=== PATIENT | female | born 2000 | race Caucasian/White ===

== ENCOUNTER → 2021-01-16 13:08 | Outpatient (CLI) | payer OTHER, SELFPAY ==
--- NOTE | 2021-01-16 | DI.MRI.S_ITS ---
PROCEDURE: MR LUMBAR SPINE WO CON INDICATIONS: Low back pain TECHNIQUE: Noncontrast sagittal T1 spin echo and T2 fast echo, sagittal STIR, axial T1 and T2 fast spin echo through the lumbar spine. In cases with scoliosis, additional coronal T2 fast spin echo may be performed. COMPARISON: None. FINDINGS: Image quality: Excellent. Alignment and Curvature: No plain films are available for comparison, for numbering purposes. Thus, for the purposes of this examination, 5 lumbar type vertebral bodies will be presumed, as denoted on the montage panel. This should be confirmed and correlated with plain films, prior to any lumbar spinal intervention. Loss of normal lumbar lordosis. Bone Marrow: Marrow is of normal overall signal. No acute vertebral body compression fractures. Minimal reactive signal within the endplates adjacent to the L4-L5 and L5-S1 intervertebral discs. Spinal Cord: Conus medullaris terminates at the mid L2 level. Visualized cord demonstrates normal signal and size. Paraspinous Soft Tissues: No paravertebral masses. T12-L1: Normal appearance. L1-L2: Normal appearance. L2-L3: Normal appearance. L3-L4: Normal appearance. L4-L5: Moderate disc desiccation. Mild diffuse disc bulge with small superimposed central protrusion. Mild facet and ligamentum flavum hypertrophy. Mild epidural lipomatosis. Mild canal stenosis. No foraminal stenosis. L5-S1: Mild disc height loss. Moderate disc desiccation. Mild diffuse disc bulge with small superimposed broad-based central protrusion. Mild bilateral facet hypertrophy. Mild canal stenosis. No foraminal stenosis. IMPRESSION: Multilevel degenerative disc and facet disease, as well as ligamentum flavum hypertrophy and epidural lipomatosis. Mild multilevel canal and foraminal stenosis. No neural impingement. Dictated by: Bertni Bolton M.D. on 01/16/2021 at 13:43 Approved by: Bertin Bolton M.D. on 01/16/2021 at 13:45
== END ==
PROVIDERS: Referring Provider Student in an Organized Health Care Education/Training Program; Visit Provider Student in an Organized Health Care Education/Training Program
DX: M54.5 Low back pain (principal); M51.36 Other intervertebral disc degeneration, lumbar region; M51.37 Other intervertebral disc degeneration, lumbosacral region; M48.061 Spinal stenosis, lumbar region without neurogenic claudication; M48.07 Spinal stenosis, lumbosacral region; E88.2 Lipomatosis, not elsewhere classified
CPT/HCPCS: 72148

== ENCOUNTER → 2021-04-12 11:01 | Outpatient (CLI) | payer OTHER, SELFPAY ==
--- NOTE | 2021-04-12 | DI.MRI.S_ITS ---
PROCEDURE: MR LUMBAR SPINE WO CON INDICATIONS: CERVICAL,THORACIC,LUMBAR PAIN TECHNIQUE: Noncontrast sagittal T1 spin echo and T2 fast echo, sagittal STIR, axial T1 and T2 fast spin echo through the lumbar spine. In cases with scoliosis, additional coronal T2 fast spin echo may be performed. COMPARISON: [facility], MR, MR LUMBAR SPINE WO CON, 01/16/2021, 13:24. FINDINGS: Image quality: Excellent. Alignment and Curvature: There is normal bony alignment. Bone Marrow: Marrow is of normal overall signal. No acute vertebral body compression fractures. Spinal Cord: Conus medullaris terminates at the L1 level. Visualized cord demonstrates normal signal and size. Paraspinous Soft Tissues: No paravertebral masses. T12-L1: Normal appearance. L1-L2: Normal appearance. L2-L3: Normal appearance. L3-L4: No significant abnormality is seen. L4-L5: The disc height is well-preserved. Loss of disc signal is seen at this level. Mild to moderate disc bulge is seen. There is a superimposed central disc protrusion. There is a focal annular fissure seen posteriorly. Mild facet joint hypertrophy is seen. There is minimal left-sided and mild right-sided neural foraminal narrowing seen. Mild to moderate central canal narrowing is seen. No significant change from the prior images. L5-S1: Mild loss of disc height is seen. Loss of disc signal is seen. Mild to moderate disc bulge is seen, with a mild central disc protrusion. There is a focal annular fissure seen posteriorly. Mild facet joint hypertrophy is seen. No significant neural foraminal narrowing can be seen. Mild central canal narrowing is seen. Stable from the prior study. IMPRESSION: Stable focal lower lumbar spine degenerative changes are seen, with central disc protrusions and annular fissures at L4-L5 and L5-S1. Dictated by: Brady Whitaker M.D. on 04/12/2021 at 12:43 Approved by: Brady Whitaker M.D. on 04/12/2021 at 12:46
--- NOTE | 2021-04-12 | DI.MRI.S_ITS ---
PROCEDURE: MR THORACIC SPINE WO CON INDICATIONS: CERVICAL,THORACIC,LUMBAR PAIN TECHNIQUE: Noncontrast sagittal T1 spine echo and T2 fast spin echo, sagittal STIR, axial T1 and T2 fast spin echo through the thoracic spine. COMPARISON: None. FINDINGS: Image quality: Excellent. Alignment and Curvature: There is normal bony alignment. Bone Marrow: Marrow is of normal overall signal. No acute vertebral body compression fractures. Spinal Cord: Visualized spinal cord is normal in size and signal. Paraspinous Soft Tissues: No paravertebral masses. Miscellaneous: On axial images, central canal and foramina appear widely patent at all scanned levels. IMPRESSION: Normal examination. No canal or foraminal stenosis. Dictated by: Ed Cohn M.D. on 04/12/2021 at 13:04 Approved by: Ed Cohn M.D. on 04/12/2021 at 13:14
--- NOTE | 2021-04-12 | DI.MRI.S_ITS ---
PROCEDURE: MR HEAD/BRAIN WO CON INDICATIONS: CERVICAL,THORACIC,LUMBAR PAIN TECHNIQUE: Noncontrast axial T1 spin echo, axial T2 fast spin echo, sagittal and axial FLAIR, coronal T2 fast spin echo, axial gradient echo, axial diffusion and ADC through the brain. COMPARISON: None. FINDINGS: Image quality: Excellent. CSF Spaces: Basal cisterns are patent. No extra-axial fluid collections. Ventricles are normal in size and shape. Brain: No intracranial masses or hemorrhage. Epstein/white matter interface is normal. Brainstem appears normal. Diffusion-weighted images demonstrate no acute ischemic insult. No chronic ischemic insults. Normal intravascular flow voids are present. Mildly enlarged appearance of the pituitary, however dynamic contrast enhanced thin slice pituitary protocol MRI could provide more definitive assessment. Skull and face: Calvarium has normal marrow signal. Orbits appear normal. Sinuses: Sinuses and mastoids are clear. IMPRESSION: No acute findings. Enlarged appearance of the pituitary raising the possibility of a microadenoma. As clinically warranted, consider further evaluation recommended with contrast enhanced pituitary protocol MRI. Dictated by: Ed Cohn M.D. on 04/12/2021 at 12:53 Approved by: Ed Cohn M.D. on 04/12/2021 at 13:04
--- NOTE | 2021-04-12 | DI.MRI.S_ITS ---
PROCEDURE: MR CERVICAL SPINE WO CON INDICATIONS: CERVICAL,THORACIC,LUMBAR PAIN TECHNIQUE: Noncontrast sagittal T1 spin echo and T2 fast spin echo, sagittal STIR, foraminal oblique sagittal T2 fast spin echo, and axial gradient echo or T2 fast spin echo through the cervical spine. COMPARISON: None. FINDINGS: Image quality: Excellent. Alignment and Curvature: Straightening of the normal lordotic curvature. Bone Marrow: Marrow demonstrates normal overall signal. Spinal Cord: Visualized spinal cord has normal size and signal. No cerebellar tonsillar herniation. Paraspinous Soft Tissues: No paravertebral masses. Prevertebral soft tissues are normal in thickness. C2-C3: No canal or right foraminal stenosis. Mild left foraminal narrowing. C3-C4: Normal appearance. C4-C5: Normal appearance. C5-C6: Normal appearance. C6-C7: Normal appearance. C7-T1: Normal appearance. IMPRESSION: Mild left C2-C3 foraminal narrowing. Dictated by: Ed Cohn M.D. on 04/12/2021 at 13:14 Approved by: Ed Cohn M.D. on 04/12/2021 at 13:19
== END ==
PROVIDERS: Referring Provider Neurological Surgery; Visit Provider Neurological Surgery
DX: M51.36 Other intervertebral disc degeneration, lumbar region (principal); G95.9 Disease of spinal cord, unspecified; M54.9 Dorsalgia, unspecified; M48.02 Spinal stenosis, cervical region; M47.816 Spondylosis without myelopathy or radiculopathy, lumbar region; M47.817 Spondylosis without myelopathy or radiculopathy, lumbosacral region; M51.26 Other intervertebral disc displacement, lumbar region; M51.27 Other intervertebral disc displacement, lumbosacral region
CPT/HCPCS: 70551; 72141; 72146; 72148

== ENCOUNTER 2021-06-12 10:59 | Emergency (ER) | payer OTHER, SELFPAY ==
[2021-06-12 12:16] VITALS: BP 119/66; PULSE 100; RESP 16; TEMP 36.1; O2SAT 100; BMI 23.3
--- NOTE | 2021-06-12 14:50 | ED.BACK ---
HPI - Back Pain/Injury <CLAU Alejo - Last Filed: 06/12/21 15:09> General Chief Complaint: Back Pain/Injury Stated Complaint: Herniated disc, pain in both legs Time Seen by Provider: 06/12/21 12:39 Source: patient History of Present Illness HPI Narrative: 20-year-old female with previous lumbar spine injury presents to the emergency department complaining of exacerbation of her lumbar pain with sciatica bilaterally down to her toes. Patient has had a MRI 04/12/2021 showing stable lumbar spine degenerative changes with central disc protrusions an annular fissures at L4-5 and L5-S1 with mild central canal narrowing. Patient has a scheduled follow-up appointment with her PCP on Thursday she has seen a couple different spinal surgeons in the past to have told her that it is not surgical but she is also her that it is very concerning. She is working with the [employer] on getting this treated and has an upcoming steroid injection on 06/24/2021. 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 Patient denies any loss of bowel or bladder, she denies any new trauma or injury. She denies any recent fever or illness. Exacerbating factors: none (Bending over, pulling on her boots) Related Data Previous Rx's Medication Instructions Recorded methocarbamol 500 mg tablet 500 mg PO TID PRN #20 tab 06/12/21 prednisone 50 mg tablet 50 mg PO DAILY #5 tab 06/12/21 Allergies Allergy/AdvReac Type Severity Reaction Status Date / Time No Known Drug Allergies Allergy Verified 06/12/21 12:19 Review of Systems <CLAU Alejo - Last Filed: 06/12/21 15:09> Review of Systems Narrative: General: denies fever, chills Head/Neck: denies headache, neck pain Eyes: denies visual changes, eye pain Cardio: denies chest pain, palpitations Respiratory: denies shortness of breath, cough GI: denies abdominal pain, nausea, vomiting, or diarrhea : denies dysuria, hematuria MSK: denies joint pain, muscle weakness Skin: denies rash, itching Neuro: denies numbness, tingling Patient History <CLAU Alejo - Last Filed: 06/12/21 15:09> Social History Smoking Status: Never smoker Smoking Status: Never smoker Substance Use Type: does not use Exam <CLAU Alejo - Last Filed: 06/12/21 15:09> Narrative Exam Narrative: Independently reviewed vitals signs and nursing notes. General: Awake, alert, nontoxic, no cardiorespiratory distress Head/Neck: Atraumatic, neck full range of motion Eyes: EOMI, conjunctiva normal Nose: nares patent, no rhinorrhea Mouth/Throat: moist mucus membranes, posterior pharynx normal, no oral lesions Cardio: Regular rate and rhythm, no peripheral edema Respiratory: respirations unlabored without wheezing, stridor, or rales. No retractions. GI: Abdomen soft, nontender MSK: Moves all extremities, neurovascularly intact, nontender over lumbar spine, tenderness to musculature adjacent to lumbar spine. Skin: Normal capillary refill, no rash Neuro: Normal speech and cognition, normal gait Initial Vital Signs Initial Vital Signs: Vital Signs Temperature 96.9 F L 06/12/21 12:16 Pulse Rate 100 H 06/12/21 12:16 Respiratory Rate 16 06/12/21 12:16 Blood Pressure 119/66 06/12/21 12:16 Pulse Oximetry 100 06/12/21 12:16 <Oc Yusuf DO - Last Filed: 06/19/21 19:23> Initial Vital Signs Initial Vital Signs: Vital Signs Temperature 96.9 F L 06/12/21 12:16 Pulse Rate 100 H 06/12/21 12:16 Respiratory Rate 16 06/12/21 12:16 Blood Pressure 119/66 06/12/21 12:16 Pulse Oximetry 100 06/12/21 12:16 Course <CLAU Alejo - Last Filed: 06/12/21 15:09> Orders Ordered: Discontinued Medications Ketorolac Tromethamine (Ketorolac 30 Mg/Ml Vial) 15 mg IM NOW ONE Stop: 06/12/21 14:56 Last Admin: 06/12/21 15:47 Dose: 15 mg Documented by: BARRETT Prednisone (Prednisone 20 Mg Tablet) 40 mg PO NOW ONE Stop: 06/12/21 14:56 Last Admin: 06/12/21 15:47 Dose: 40 mg Documented by: BARRETT Vital Signs Vital signs: Vital Signs - 8 hr 06/12/21 12:16 Temperature 96.9 F L Pulse Rate 100 H Respiratory Rate 16 Blood Pressure 119/66 Pulse Oximetry 100 <Oc Yusuf DO - Last Filed: 06/19/21 19:23> Orders Ordered: Discontinued Medications Ketorolac Tromethamine (Ketorolac 30 Mg/Ml Vial) 15 mg IM NOW ONE Stop: 06/12/21 14:56 Last Admin: 06/12/21 15:47 Dose: 15 mg Documented by: BARRETT Prednisone (Prednisone 20 Mg Tablet) 40 mg PO NOW ONE Stop: 06/12/21 14:56 Last Admin: 06/12/21 15:47 Dose: 40 mg Documented by: BARRETT Vital Signs Vital signs: Vital Signs - 8 hr 06/12/21 12:16 Temperature 96.9 F L Pulse Rate 100 H Respiratory Rate 16 Blood Pressure 119/66 Pulse Oximetry 100 MDM - Back Pain/Injury <CLAU Alejo - Last Filed: 06/12/21 15:09> MDM Narrative Medical decision making narrative: 20-year-old female presents to to the emergency department with an exacerbation of her lumbar spine injury and pain with sciatica. Patient has disc protrusion and annular fissures at L4-5 and L5-S1 as visualized on MRI 04/12/2021. Patient has a follow-up appoint with her PCP on Thursday, reports that this morning when she was trying to put on her boots she had an exacerbation of the pain was unable to bend over fully. She denies any loss of bladder or bowel, endorses numbness and tingling down to her toes in both lower extremities. She denies any recent illness. Patient was taking Aleve and gabapentin at home without much improvement, she has the upcoming steroid injection to this area on 06/24/2021 and a follow-up with her PCP in a couple of days. Patient was given steroids, muscle relaxers, she reports that she has lidocaine patches at home which helped mildly. She is given referral to Dr. Leong for orthopedic spine and instructed to follow-up with Jenaro in her PCP in order for approval to be seen. Multiple etiologies of back pain considered including: Epidural abscess, cauda equina, mass occupying lesion, and other considered. Patient is appropriate and amenable to discharge home. Vital signs are stable on repeat examination is unremarkable. Patient has been informed of results. Patient has been given strict return to ER precautions for any new or worsening symptoms. Patient understands to follow up closely with outpatient providers as instructed. Patient understands plan and agrees to discharge home. All questions and concerns answered at this time. Discharge Plan Departure Patient Disposition: Home Clinical Impression: Sciatica Chronic lumbar pain Qualifiers: Back pain laterality: bilateral Sciatica presence: with sciatica Sciatica laterality: bilateral sciatica Qualified Code(s): M54.42 - Lumbago with sciatica, left side Instructions: DI for Back Pain With Sciatica Activity Restrictions/Additional Instructions: *You have been diagnosed with an exacerbation of your lumbar back pain. Please take these medications as prescribed, remember to drink water and eat food with them. Please follow-up with your PCP on Thursday as scheduled. *What to do: *Please continue to take your regular medications as directed. [X ] New medication prescriptions sent to your pharmacy: [ ] [ ] New medication written as a paper prescription [ ] No new medications given *Please follow up with your primary care provider in 2-3 days, call for an appointment. Let them know you were seen in the Emergency Department and that we ask that you be seen in follow up. We will electronically transmit a record of today's note if your PCP is in our system *If you do not have a primary care provider please contact the [facility] Resource line at [phone]. They will ask some questions about your medical history and help get you set up with a doctor in the community. *Return to Emergency Department if you should have any new, worsening or concerning symptoms, such as [fever greater than 101F, chills, worsening pain, persistent vomiting or other bothersome symptoms] Prescriptions: New prednisone 50 mg tablet 50 mg PO DAILY Qty: 5 0RF methocarbamol 500 mg tablet 500 mg PO TID PRN (Reason: back pain) Qty: 20 0RF Referrals: Theron Leong MD [Physician] - 7-10 days Ike Shaver MD [Primary Care Provider] - As soon as possible <Oc Yusuf DO - Last Filed: 06/19/21 19:23> [facility] I was immediately available in the department for consultation. This documentation has been reviewed and I agree with assessment and plan. Supervised by Oc Yusuf DO
[2021-06-12] MEDS: KETOROLAC 30 MG/ML VIAL 15 MG IM (15:47)
[2021-06-12] MEDS: predniSONE 20 MG TABLET 40 MG PO (15:47)
== END 2021-06-12 15:46 | disposition home or self-care (01) ==
PROVIDERS: Emergency Provider Nurse Practitioner Critical Care Medicine
DX: M54.42 Lumbago with sciatica, left side (principal); M54.41 Lumbago with sciatica, right side
CPT/HCPCS: 96372; 99283; J1885

== ENCOUNTER → 2021-09-13 11:56 | Outpatient (CLI) | payer OTHER, SELFPAY ==
--- NOTE | 2021-09-13 11:59 | DI.MRI.S_ITS ---
PROCEDURE: MR BRAIN (PITUITARY) WWO CON INDICATIONS: Benign neoplasm of pituitary gland TECHNIQUE: Noncontrast sagittal and axial FLAIR, axial gradient echo, axial diffusion and ADC through the brain. Thin-slice sagittal and coronal T1 spin echo, coronal T2 fast spin echo through the pituitary. After the administration contrast, optional dynamic coronal T1 spin echo, thin-slice coronal and sagittal T1 spin echo images through the pituitary fossa; axial T1 spin echo with fat saturation through the brain. COMPARISON: [facility], MR, MR HEAD/BRAIN WO CON, 04/12/2021, 11:25. FINDINGS: Image quality: Excellent. Pituitary Gland: Pituitary gland is normal in size and contour. Pituitary gland demonstrates normal, homogeneous postcontrast enhancement without abnormal focus of delayed postcontrast enhancement. Pituitary infundibulum is normal in thickness and demonstrates normal postcontrast enhancement. Pituitary infundibulum is midline. No suprasellar masses. Optic chiasm is normal. Cavernous sinus demonstrates normal postcontrast enhancement. CSF Spaces: Ventricles are normal in size and shape. Basal cisterns are patent. No extra-axial fluid collections. Brain: No intracranial bleeds or mass effects. No abnormal intracranial enhancement. Epstein-white matter interface is intact. Diffusion weighted images demonstrate no acute ischemic insults. Brainstem is normal. 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 Normal intravascular flow voids are present. Dural sinuses demonstrate normal postcontrast enhancement. Skull and face: Calvarial marrow is normal in signal. Orbits appear normal. Sinuses: Sinuses and mastoids are clear. IMPRESSION: Normal examination without MRI evidence of pituitary microadenoma. Dictated by: Herminia Mcfadden MD, PhD on 09/13/2021 at 13:23 Approved by: Herminia Mcfadden MD, PhD on 09/13/2021 at 13:32
== END ==
PROVIDERS: Referring Provider Nurse Practitioner Family; Visit Provider Nurse Practitioner Family
DX: D35.2 Benign neoplasm of pituitary gland (principal)
CPT/HCPCS: 70553

== ENCOUNTER 2021-09-30 19:34 | Emergency (ER) | payer OTHER, SELFPAY ==
[2021-09-30 19:37] VITALS: BP 111/73; PULSE 87; RESP 18; TEMP 36.6; O2SAT 99; BMI 22.6
[2021-09-30 20:18] LABS: Alanine Aminotransferase 48 IU/L (<35); Albumin 4.4 g/dL (3.5-5.0); Albumin Globulin Ratio 1.4 (1.0-2.8); Alkaline Phosphatase 45 U/L (38-126); Aspartate Aminotransferase 42 IU/L (14-36); BUN Creatinine Ratio 24.6 (6-22); Blood Urea Nitrogen 15 mg/dL (7-17); Calcium 8.7 mg/dL (8.4-10.2); Carbon Dioxide 21 mmol/L (22-32); Chloride 104 mmol/L (98-107); Estimated Glomerular Filt Rate > 60 mL/min (>60); Globulin 3.1 g/dL (1.7-4.1); Glucose 93 mg/dL (70-100); HEMOLYSIS < 15 (0-50); Lipase 187 U/L (23-300); Sodium 138 mmol/L (137-145); Total Protein 7.5 g/dL (6.3-8.2)
[2021-09-30 20:23] LABS: Add Manual Diff / Slide Review NO; Basophils Absolute Auto 0 /uL (0-100); Basophils Percent Auto 0.5 % (0-2); Eosinophils Absolute Auto 0 /uL (0-450); Eosinophils Percent Auto 0.1 % (2-4); Hematocrit 37.2 % (36-46); Hemoglobin 13.2 g/dL (12.0-16.0); Lymphocytes Absolute Auto 2400 /uL (1100-4500); Lymphocytes Percent Auto 30.7 % (25-40); Mean Corpuscular HGB Conc 35.4 % (30-36); Mean Corpuscular Hemoglobin 31.2 PG (26-34); Mean Corpuscular Volume 88.2 fL (80-100); Monocytes Absolute Auto 300 /uL (0-900); Monocytes Percent Auto 3.2 % (3-14); Neutrophils Absolute Auto 5100 /uL (1500-7000); Neutrophils Percent Auto 65.5 % (50-75); Platelet Count 384 X10^3/uL (150-400); Red Blood Cell Count 4.21 X10^6/uL (4.0-5.2); Red Cell Distribution Width 11.7 % (11.6-14.8); White Blood Cell Count 7.9 X10^3/uL (4.5-11.0)
[2021-09-30 20:38] LABS: Ictotest Urine Negative (Negative); RBC Urine 0-1/HPF (0-5/HPF)
[2021-09-30 20:39] LABS: Bacteria Urine Moderate (10-30); Culture Indicated Urine Specimen Cultured; Transitional Epi Cells Urine 1-5/HPF (0-5/HPF); WBC Urine 1-5/HPF (0-5/HPF)
--- NOTE | 2021-09-30 21:19 | ED.ABDPAIN ---
HPI - Abdominal Pain General Chief Complaint: Abdominal Pain Stated Complaint: SHARP PAIN LOWER ABDOMEN Time Seen by Provider: 09/30/21 21:13 Source: patient Mode of arrival: Ambulatory History of Present Illness HPI narrative: Patient is a 21-year-old female with history of yanni-danlos syndrome, and degenerative disc disease who presents with 2 days of right lower quadrant pain. She has had decrease in appetite mild nausea no vomiting. She denies any flank pain, minimal epigastric and right upper quadrant pain as well. His she says it does hurt to walk. No painful or frequent urination. She has felt warm but no actual fever. She denies any abnormal vaginal discharge. Related Data Previous Rx's Medication Instructions Recorded methocarbamol 500 mg tablet 500 mg PO TID PRN #20 tab 06/12/21 prednisone 50 mg tablet 50 mg PO DAILY #5 tab 06/12/21 Allergies Allergy/AdvReac Type Severity Reaction Status Date / Time No Known Drug Allergies Allergy Verified 09/30/21 19:41 Review of Systems Review of Systems Narrative: GENERAL: Denies chills, fatigue, malaise, fever, sweats, travel HEENT: Denies sinus pain, ear pain, sore throat, difficulty swallowing, neck pain RESPIRATORY: Denies dyspnea, cough, wheezing, hemoptysis, sputum. CARDIOVASCULAR: Denies chest pain, palpitations, orthopnea, edema GASTROINTESTINAL: See HPI : Denies dysuria, frequency, incontinence, hematuria, urinary retention, flank pain. MUSCULOSKELETAL: Denies weakness, joint pain, or bony pain SKIN: No rash, no erythema, no pruritus NEUROLOGIC: Denies weakness, dizziness, headache, numbness, change in speech, confusion PSYCHIATRIC: No concerning psychosocial issues. 12 point review of systems is negative except for those stated above and HPI Patient History Social History Smoking Status: Never smoker Smoking Status: Never smoker alcohol intake frequency: 0-2 drinks per day Substance Use Type: does not use Exam Initial Vital Signs Initial Vital Signs: Vital Signs Temperature 97.9 F 09/30/21 19:37 Pulse Rate 87 09/30/21 19:37 Respiratory Rate 18 09/30/21 19:37 Blood Pressure 111/73 09/30/21 19:37 Pulse Oximetry 99 09/30/21 19:37 GENERAL: Well-appearing 21-year-old and in no acute distress. HEENT: Head atraumatic,EOMI, pupils reactive, face symmetric, moist] mucous membranes CARDIOVASCULAR: Regular rate and rhythm without murmurs, rubs or gallops. RESPIRATORY: Breath sounds equal bilaterally, no wheezes rales or rhonchi. ABDOMEN: Soft, mild right lower quadrant pain no guarding or rebound positive psoas sign minimal right upper quadrant pain and epigastric pain no guarding or rebound : No CVA tenderness EXTREMITIES: Normal range of motion, no clubbing or edema. Neurovascularly intact NEUROLOGICAL: Alert and oriented x4.Normal gait and speech. SKIN: Warm, dry, no laceration, no petechiae, no rashes or lesions. Course Orders Ordered: ED Orders 09/30/21 19:45 Complete Blood Count AUTO DIFF Stat Comprehensive Metabolic Panel Stat Lipase Stat 09/30/21 20:00 Chlamydia Gonorrhea PCR -URINE Stat Ictotest Urine Stat Urine Culture Stat Urine Microscopic Stat 09/30/21 21:22 CT abdomen pelvis w con Stat Discontinued Medications Ketorolac Tromethamine (Ketorolac 30 Mg/Ml Vial) 15 mg IV NOW ONE Stop: 09/30/21 22:49 Last Admin: 09/30/21 22:57 Dose: 15 mg Documented by: MANUEL Vital Signs Vital signs: Vital Signs - 8 hr 09/30/21 19:37 09/30/21 23:02 Temperature 97.9 F Pulse Rate 87 64 Respiratory Rate 18 16 Blood Pressure 111/73 97/68 Pulse Oximetry 99 99 MDM - Abdominal Pain Lab Data Result diagrams: 09/30/21 19:45 09/30/21 19:45 Labs: Lab Results 09/30/21 09/30/21 09/30/21 Range/Units 19:45 19:45 20:00 WBC 7.9 (4.5-11.0) X10^3/uL RBC 4.21 (4.0-5.2) X10^6/uL Hgb 13.2 (12.0-16.0) g/dL Hct 37.2 (36-46) % MCV 88.2 (80-100) fL MCH 31.2 (26-34) PG MCHC 35.4 (30-36) % RDW 11.7 (11.6-14.8) % Plt Count 384 (150-400) X10^3/uL Neut % (Auto) 65.5 (50-75) % Lymph % (Auto) 30.7 (25-40) % [place] % (Auto) 3.2 (3-14) % Eos % (Auto) 0.1 L (2-4) % Baso % (Auto) 0.5 (0-2) % Neut # (Auto) 5100 (1865-4097) /uL Lymph # (Auto) 2400 (4329-9808) /uL [place] # (Auto) 300 (0-900) /uL Eos # (Auto) 0 (0-450) /uL Baso # (Auto) 0 (0-100) /uL Sodium 138 (137-145) mmol/L Potassium 4.0 (3.4-5.1) mmol/L Chloride 104 (98-107) mmol/L Carbon Dioxide 21 L (22-32) mmol/L BUN 15 (7-17) mg/dL Creatinine 0.61 (0.52-1.04) mg/dL Estimated GFR > 60 (>60) mL/min BUN/Creatinine Ratio 24.6 H (6-22) Glucose 93 (70-100) mg/dL Cal[place] 8.7 (8.4-10.2) mg/dL Total Bilirubin 1.0 (0.2-1.3) mg/dL AST 42 H (14-36) IU/L ALT 48 H (<35) IU/L Alkaline Phosphatase 45 (38-126) U/L Total Protein 7.5 (6.3-8.2) g/dL Albumin 4.4 (3.5-5.0) g/dL Globulin 3.1 (1.7-4.1) g/dL Albumin/Globulin Ratio 1.4 (1.0-2.8) Lipase 187 (23-300) U/L Ur Bilirubin Confirm Negative (Negative) Urine RBC 0-1/hpf (0-5/HPF) Urine WBC 1-5/hpf (0-5/HPF) Ur Transition Epith Cell 1-5/hpf (0-5/HPF) Urine Bacteria Moderate (10-30) H (None) Ur Culture Indicated? Specimen cultured Ur Chlamydia DNA (PCR) N gonorrhoeae DNA (PCR) 09/30/21 Range/Units 20:00 WBC (4.5-11.0) X10^3/uL RBC (4.0-5.2) X10^6/uL Hgb (12.0-16.0) g/dL Hct (36-46) % MCV (80-100) fL MCH (26-34) PG MCHC (30-36) % RDW (11.6-14.8) % Plt Count (150-400) X10^3/uL Neut % (Auto) (50-75) % Lymph % (Auto) (25-40) % [place] % (Auto) (3-14) % Eos % (Auto) (2-4) % Baso % (Auto) (0-2) % Neut # (Auto) (6961-2439) /uL Lymph # (Auto) (3316-2072) /uL [place] # (Auto) (0-900) /uL Eos # (Auto) (0-450) /uL Baso # (Auto) (0-100) /uL Sodium (137-145) mmol/L Potassium (3.4-5.1) mmol/L Chloride (98-107) mmol/L Carbon Dioxide (22-32) mmol/L BUN (7-17) mg/dL Creatinine (0.52-1.04) mg/dL Estimated GFR (>60) mL/min BUN/Creatinine Ratio (6-22) Glucose (70-100) mg/dL [place]cium (8.4-10.2) mg/dL Total Bilirubin (0.2-1.3) mg/dL AST (14-36) IU/L ALT (<35) IU/L Alkaline Phosphatase (38-126) U/L Total Protein (6.3-8.2) g/dL Albumin (3.5-5.0) g/dL Globulin (1.7-4.1) g/dL Albumin/Globulin Ratio (1.0-2.8) Lipase (23-300) U/L Ur Bilirubin Confirm (Negative) Urine RBC (0-5/HPF) Urine WBC (0-5/HPF) Ur Transition Epith Cell (0-5/HPF) Urine Bacteria (None) Ur Culture Indicated? Ur Chlamydia DNA (PCR) Not detected N gonorrhoeae DNA (PCR) Not detected Point of care testing: Point of Care Testing Test Results Negative Urine Dip Bedside Urine Glucose Negative Bedside Urine Bilirubin + 1 Bedside Urine Ketone +++ 80 Urine Specific [place] 1.025 Bedside Urine Occult Blood + Bedside Urine pH 6 Bedside Urine Protein - Negative Bedside Urine Urobilinogen +/- 1mg Bedside Urine Nitrite - Negative Bedside Urine Leukocytes +/- [address] scan - abdomen/pelvis: Radiologist's Impression: Julia Golden MR#: [id number] : 2000 Acct:[id number] Age/Sex: 21 / F Date of Service: 09/30/21 Loc: ED Accession Number: [id number] ?? Procedure: CT abdomen pelvis w con Ordering Provider: Tamia Sears D.O. PROCEDURE:? CT ABDOMEN PELVIS W CON ? INDICATIONS:? rlq pain ? TECHNIQUE:? After the administration of intravenous contrast, axial sections acquired from the lung bases to the pubic symphysis.? Coronal and sagittal reformats were performed.? For radiation dose reduction, the following was used:? automated exposure control, adjustment of mA and/or kV according to patient size.? ? COMPARISON:? None. ? FINDINGS:? Image quality:? Excellent.? ? Lung bases:? Unremarkable. Heart:? No significant findings. ? ABDOMEN: Liver:? No masses Gallbladder:? Distended gallbladder.? Normal wall thickness. Biliary ducts:? Nondilated. Pancreas:? Normal. Spleen:? Normal size. Adrenal Glands:? No nodules. Kidneys and Ureters:? Normal enhancement.? No hydronephrosis or hydroureter.? No calcifications. ? Stomach and Bowel:? Stomach, small bowel loops, and colon are unremarkable.? There is a normal caliber appendix directed cranially and retrocecal.? Proximal to midportion contains gas.? The distal portion demonstrates trace periappendiceal inflammation but maintains a normal caliber.? There is no appendicolith. Peritoneum:? No abnormal intraperitoneal fluid.? No free air.? ? Ventral Wall: ? No hernias.? Abdominal Nodes:? No retroperitoneal or mesenteric adenopathy by size criteria.? Vessels:? Aorta and inferior vena cava are normal in size.? ? PELVIS: Pelvic Organs:? Mildly enlarged, slightly edematous cervix with mild surrounding inflammatory change.? Ovaries are within normal limits.? There is a partially exophytic left ovarian follicle.? The uterus is anteverted and the fundus appears normal. Bladder:? Decompressed and normal. Pelvic Nodes: No enlarged lymph nodes.? Miscellaneous: No hernias are seen. ? ? ? Bones:? Unremarkable.? IMPRESSION:? ? 1. There is mild pelvic inflammation suggesting possibility of pelvic inflammatory disease. ? 2. Trace periappendiceal inflammation at the tip of the retrocecal appendix.? The proximal appendix is normal.? Acute appendicitis is felt less likely and close clinical observation is recommended. ? ? ? Dictated by: Echo Swanson M.D. on 09/30/2021 at 22:29 ? ? Approved by: Echo Swanson M.D. on 09/30/2021 at 22:34? MDM Narrative Medical decision making narrative: At this time patient is having some mild right lower quadrant pain, CT is negative for acute appendicitis but does suggest a PID. She is newly is tender in her abdomen. She denies any abnormal vaginal discharge her urine G &C is negative. Urine does have some bacteria is at leukocytes but no signs of UTI at this time recommend waiting for culture. She overall appears well. She was given Toradol for pain which did keep to help some. Discharge Plan Departure Patient Disposition: Home Clinical Impression: Abdominal pain Instructions: DI for Abdominal Pain-Adult Activity Restrictions/Additional Instructions: *You have been diagnosed with abdominal pain *What to do: At this time you do not have appendicitis but the appendix is mildly inflamed likely causing some of your symptoms. Your urine does have bacteria but you do not have signs or symptoms of a bladder infection we will call you in 2-3 days if you should need antibiotics. If you do not hear from us you do not need antibiotics. *Continue to take medications as directed *Follow up with your primary care provider in 2-3 days or call [phone] *Return to ER if you should have increased pain, fever, nausea, vomiting or any new, worsening or concerning symptoms Prescriptions: No Action prednisone 50 mg tablet 50 mg PO DAILY Qty: 5 0RF methocarbamol 500 mg tablet 500 mg PO TID PRN (Reason: back pain) Qty: 20 0RF Referrals: Reinaldo Waller [Primary Care Provider] -
--- NOTE | 2021-09-30 21:22 | DI.CT.S_ITS ---
PROCEDURE: CT ABDOMEN PELVIS W CON INDICATIONS: rlq pain TECHNIQUE: After the administration of intravenous contrast, axial sections acquired from the lung bases to the pubic symphysis. Coronal and sagittal reformats were performed. For radiation dose reduction, the following was used: automated exposure control, adjustment of mA and/or kV according to patient size. COMPARISON: None. FINDINGS: Image quality: Excellent. Lung bases: Unremarkable. Heart: No significant findings. ABDOMEN: Liver: No masses Gallbladder: Distended gallbladder. Normal wall thickness. Biliary ducts: Nondilated. Pancreas: Normal. Spleen: Normal size. Adrenal Glands: No nodules. Kidneys and Ureters: Normal enhancement. No hydronephrosis or hydroureter. No calcifications. Stomach and Bowel: Stomach, small bowel loops, and colon are unremarkable. There is a normal caliber appendix directed cranially and retrocecal. Proximal to midportion contains gas. The distal portion demonstrates trace periappendiceal inflammation but maintains a normal caliber. There is no appendicolith. Peritoneum: No abnormal intraperitoneal fluid. No free air. Ventral Wall: No hernias. Abdominal Nodes: No retroperitoneal or mesenteric adenopathy by size criteria. Vessels: Aorta and inferior vena cava are normal in size. PELVIS: Pelvic Organs: Mildly enlarged, slightly edematous cervix with mild surrounding inflammatory change. Ovaries are within normal limits. There is a partially exophytic left ovarian follicle. The uterus is anteverted and the fundus appears normal. Bladder: Decompressed and normal. Pelvic Nodes: No enlarged lymph nodes. Miscellaneous: No hernias are seen. Bones: Unremarkable. IMPRESSION: 1. There is mild pelvic inflammation suggesting possibility of pelvic inflammatory disease. 2. Trace periappendiceal inflammation at the tip of the retrocecal appendix. The proximal appendix is normal. Acute appendicitis is felt less likely and close clinical observation is recommended. Dictated by: Echo Swanson M.D. on 09/30/2021 at 22:29 Approved by: Echo Swanson M.D. on 09/30/2021 at 22:34
[2021-09-30] MEDS: KETOROLAC 30 MG/ML VIAL 15 MG IV (22:57)
[2021-09-30 23:02] VITALS: BP 97/68; PULSE 64; RESP 16; O2SAT 99
[2021-10-01 01:08] LABS: Urine N gonorrhoeae NOT DETECTED
[2021-10-01 01:16] LABS: Urine Chlamydia NOT DETECTED
== END 2021-09-30 23:31 | disposition home or self-care (01) ==
PROVIDERS: Emergency Provider Emergency Medicine; PCP Student in an Organized Health Care Education/Training Program
DX: R10.31 Right lower quadrant pain (principal)
CPT/HCPCS: 36415; 74177; 80053; 81003; 81015; 81025; 83690; 85025; 87077; 87086; 87186; 87491; 87591; 96374; 99284; J1885; Q9967

== ENCOUNTER 2021-12-23 23:37 | Emergency (ER) | payer OTHER, SELFPAY ==
[2021-12-23 23:51] VITALS: BP 112/79; PULSE 78; RESP 18; O2SAT 98; BMI 22.3
[2021-12-24 00:12] VITALS: PULSE 77; O2SAT 98
[2021-12-24] MEDS: methylPREDNISolone 125 MG/2 ML VIAL IV (00:20)
[2021-12-24] MEDS: diphenhydrAMINE 50 MG/ML VIAL IV (00:20)
[2021-12-24 00:30] VITALS: PULSE 76; O2SAT 99
--- NOTE | 2021-12-24 00:57 | ED_ITS ---
HPI - Allergic Reaction General Chief complaint: Allergic Reaction Stated complaint: allergic reaction Time Seen by Provider: 12/24/21 00:07 Source: patient Mode of arrival: Ambulatory Limitations: no limitations History of Present Illness HPI narrative: This is a 21-year-old female with known migraine disorder who follows with a neurologist, EDS who comes in with complaint of reaction to injectable sumatriptan. Patient states she was prescribed this medication by her neurologist, it was her 1st use she gave herself a shot and within 20 minutes started developing swelling at the site, hives she felt a little bit of tightness in her chest and throat. Her hives have resolved after IV Benadryl and Solu-Medrol, tightness has resolved well. She did have any swelling of her tongue or lips. She no longer feels tight in her throat. She denies any nausea or vomiting. No diarrhea. She is not had similar symptoms in the past or had any known medication allergies before. No tobacco, occasional alcohol, no illicit. She has used other rescue medications in the past. Related Data Previous Rx's Medication Instructions Recorded methocarbamol 500 mg tablet 500 mg PO TID PRN back pain #20 06/12/21 tabs prednisone 50 mg tablet 50 mg PO DAILY back pain #5 tabs 06/12/21 prednisone 20 mg tablet 40 mg PO DAILY 3 days #6 tabs 12/24/21 Allergies Allergy/AdvReac Type Severity Reaction Status Date / Time sumatriptan Allergy Verified 12/23/21 23:50 Review of Systems Review of Systems ROS Unobtainable: All systems reviewed & are unremarkable except as noted in HPI and below Patient History Social History Smoking Status: Never smoker Smoking Status: Never smoker alcohol intake frequency: 0-2 drinks per day Substance Use Type: does not use Exam Narrative Exam Narrative: GEN: well nourished, well appearing female, alert and oriented x 3, patient appears to be in mild distress. HEENT: Atraumatic, pupils are equal round reactive to light, extraocular movements are intact, nares are clear. No hoarseness or stridor. HEART: Regular rate and rhythm without murmur, clicks, rubs. LUNGS:Lungs clear to auscultation, no wheezes, rales, crackles, chest moves symmetrically, no tachypnea or accessory muscle use. ABD:bowel sounds normal, soft, non-tender, no guarding, rebound, rigidity, no masses noted, no hepatosplenomegaly :No CVA tenderness MSCL: Non-tender, no muscle atrophy, muscles strength 5/5 upper and lower extremities, full range of motion, normal gait NEURO:CN 2-12 intact, sensation normal SKIN: Some scant erythema, no hives or raised wheals at this time, patient is about 40 minutes after steroids and Benadryl. Initial Vital Signs Initial Vital Signs: Vital Signs Pulse Rate 78 12/23/21 23:51 Respiratory Rate 18 12/23/21 23:51 Blood Pressure 112/79 12/23/21 23:51 Pulse Oximetry 98 12/23/21 23:51 Oxygen Delivery Method 12/23/21 23:51 Course Orders Ordered: Discontinued Medications Diphenhydramine HCl (Diphenhydramine 50 Mg/Ml Vial) 50 mg IV NOW ONE Stop: 12/24/21 00:08 Last Admin: 12/24/21 00:20 Dose: 50 mg Documented By: NAOMI Methylprednisolone (Methylprednisolone 125 Mg/2 Ml Vial) 125 mg IV NOW ONE Stop: 12/24/21 00:08 Last Admin: 12/24/21 00:20 Dose: 125 mg Documented By: NAOMI Vital Signs Vital signs: Vital Signs - 8 hr 12/23/21 23:51 12/24/21 00:12 12/24/21 00:30 Pulse Rate 78 77 76 Respiratory Rate 18 Blood Pressure 112/79 Pulse Oximetry 98 98 99 Oxygen Delivery Method Room Air 12/24/21 01:11 12/24/21 01:12 12/24/21 01:12 Pulse Rate 80 74 Respiratory Rate Blood Pressure 119/81 Pulse Oximetry 99 100 Oxygen Delivery Method MDM - Allergic Reaction MDM Narrative Medical decision making narrative: Patient feels significantly better after medications. Suspect allergic reaction to her new medication. Patient is to continue prednisone for the next 3 days, follow-up with her neurologist for alternatives for migraine relief. Return precautions discussed all questions answered. Discharge Plan Departure Patient Disposition: Home Clinical Impression: Allergic reaction Instructions: DI for Anaphylaxis Activity Restrictions/Additional Instructions: Follow-up with your neurologist for alternatives, call during daytime hours today to see if they have alternative choices and to let them know that you did appear to have a reaction to your medication. You may continue Benadryl [id number] 1-2 tablets every 6 hours as needed. Please take prednisone once daily x3 days Prescription sent to [email or web address] in [place]. Please return for worsening swelling of the throat, lips, tongue or airway, new or worsening chest tightness or wheezing, persistent vomiting, rash or hives, or other new or concerning symptoms. Prescriptions: New prednisone 20 mg tablet 40 mg PO DAILY 3 Days Qty: 6 0RF No Action prednisone 50 mg tablet 50 mg PO DAILY Qty: 5 0RF methocarbamol 500 mg tablet 500 mg PO TID PRN (Reason: back pain) Qty: 20 0RF Referrals: Reinaldo Waller [Primary Care Provider] - Visit Report Forms: Patient Portal/API
[2021-12-24 01:11] VITALS: PULSE 80; O2SAT 99
[2021-12-24 01:12] VITALS: BP 119/81; PULSE 74; O2SAT 100
== END 2021-12-24 01:18 | disposition home or self-care (01) ==
PROVIDERS: Emergency Provider Emergency Medicine; PCP Student in an Organized Health Care Education/Training Program
DX: T78.40XA Allergy, unspecified, initial encounter (principal)
CPT/HCPCS: 96374; 96375; 99283; 99284; J1200; J2930

== ENCOUNTER 2022-02-19 21:39 | Emergency (ER) | payer OTHER, SELFPAY ==
[2022-02-19 21:49] VITALS: PULSE 102; RESP 16; TEMP 36.6; O2SAT 97
[2022-02-19] MEDS: methylPREDNISolone 125 MG/2 ML VIAL IV (22:12)
[2022-02-19] MEDS: diphenhydrAMINE 50 MG/ML VIAL 25 MG IV (22:16)
--- NOTE | 2022-02-20 01:29 | ED.ALLEREA ---
HPI - Allergic Reaction General Chief complaint: Allergic Reaction Stated complaint: Having allergic reaction Time Seen by Provider: 02/20/22 01:22 Source: patient Mode of arrival: Ambulatory Limitations: no limitations History of Present Illness HPI narrative: 21-year-old female who states that she took her normal duloxetine this morning she is been taking long-term and then this evening took some probiotics which he is had as well and then developed hives and itching on her bilateral thighs. She felt a little tight in her throat, little tight in her chest. She got Benadryl and Solu-Medrol here and it improved her symptoms although not completely gone on her thighs. Patient states she has had reaction to sumatriptan in the past. She has not ever had any issues with foods, probiotics or had any known triggers otherwise this evening. She denies any other symptoms. Related Data Previous Rx's Medication Instructions Recorded methocarbamol 500 mg tablet 500 mg PO TID PRN back pain #20 06/12/21 tabs prednisone 50 mg tablet 50 mg PO DAILY back pain #5 tabs 06/12/21 epinephrine 0.3 mg/0.3 mL 0.3 mg (0.3 mL) IM Q5-15M PRN 02/20/22 injection, auto-injector (EpiPen anaphylaxis #2 ea 2-[place]) prednisone 20 mg tablet 40 mg PO DAILY #10 tabs 02/20/22 Allergies Allergy/AdvReac Type Severity Reaction Status Date / Time sumatriptan Allergy Verified 12/23/21 23:50 Review of Systems Review of Systems ROS Unobtainable: All systems reviewed & are unremarkable except as noted in HPI and below Patient History Social History Smoking Status: Never smoker Smoking Status: Never smoker alcohol intake frequency: 0-2 drinks per day Substance Use Type: does not use Exam Narrative Exam Narrative: GENERAL: Alert and oriented x three, mild distress. HEENT: Head normocephalic, atraumatic, EOMI, pupils reactive, face symmetric, no oropharyngeal involvement, normal voice. Moist mucous membranes NECK: Supple, full range of motion CARDIOVASCULAR: Regular rate and rhythm without murmurs, rubs or gallops. RESPIRATORY: Breath sounds equal bilaterally, no wheezes rales or rhonchi. ABDOMEN: Soft, nontender. Normoactive bowel sounds all 4 quadrants. No guarding or rebound, rigidity, no mass : No CVA tenderness EXTREMITIES: Normal range of motion, no clubbing or edema. Neurovascularly intact NEUROLOGICAL: Cranial nerves II through XII grossly intact. Moving all extremities SKIN: Warm, dry, no petechiae, patient has raised erythematous wheals which have flattened in comparison to her earlier picture and are not as extensive on bilateral upper thighs. Initial Vital Signs Initial Vital Signs: Vital Signs Temperature 97.9 F 02/19/22 21:49 Pulse Rate 102 H 02/19/22 21:49 Respiratory Rate 16 02/19/22 21:49 Pulse Oximetry 97 02/19/22 21:49 Oxygen Delivery Method 02/19/22 21:49 Course Orders Ordered: Discontinued Medications Diphenhydramine HCl (Diphenhydramine 50 Mg/Ml Vial) 25 mg IV NOW ONE Stop: 02/19/22 22:01 Last Admin: 02/19/22 22:16 Dose: 25 mg Documented By: CHAYA Methylprednisolone (Methylprednisolone 125 Mg/2 Ml Vial) 125 mg IV NOW ONE Stop: 02/19/22 22:02 Last Admin: 02/19/22 22:12 Dose: 125 mg Documented By: CHAYA Vital Signs Vital signs: Vital Signs - 8 hr 02/19/22 21:49 02/20/22 01:38 Temperature 97.9 F Pulse Rate 102 H 67 Respiratory Rate 16 16 Blood Pressure 110/64 Pulse Oximetry 97 99 Oxygen Delivery Method Room Air Room Air MDM - Allergic Reaction MDM Narrative Medical decision making narrative: Discussed with patient unclear exact source maybe probiotics seems very unlikely her duloxetine as it was taken this morning and symptoms occurred this evening. To continue to monitor keep a diary can do Benadryl as needed and short course of steroids. Discharge Plan Departure Patient Disposition: Home Clinical Impression: Allergic reaction Instructions: DI for Hives Activity Restrictions/Additional Instructions: Please follow-up for recheck. Probiotics may have been the cause of her allergic reaction today but I would keep a diary if you have any additional potential triggers or causes. You can take steroids until completely gone You may continue Benadryl 1-2 tablets every 6 hours as needed for symptoms. EpiPen prescription is included. Use this if needed for anaphylactic symptoms. Prescription sent to the [facility] pharmacy Please return for rapidly worsening symptoms, swelling of her airway, lips, tongue, muffled voice, passing out, persistent vomiting, chest pain or shortness of breath or other new or concerning symptoms. Prescriptions: New prednisone 20 mg tablet 40 mg PO DAILY Qty: 10 0RF epinephrine [EpiPen 2-[place]] 0.3 mg/0.3 mL auto-injector 0.3 mg IM Q5-15M PRN (Reason: anaphylaxis) Qty: 2 0RF Rx Instructions: do not exceed 3 doses per episode No Action prednisone 50 mg tablet 50 mg PO DAILY Qty: 5 0RF methocarbamol 500 mg tablet 500 mg PO TID PRN (Reason: back pain) Qty: 20 0RF Referrals: Reinaldo Waller [Primary Care Provider] - Visit Report Forms: Patient Portal/API
[2022-02-20 01:38] VITALS: BP 110/64; PULSE 67; RESP 16; O2SAT 99
== END 2022-02-20 01:38 | disposition home or self-care (01) ==
PROVIDERS: Emergency Provider Emergency Medicine; PCP Student in an Organized Health Care Education/Training Program
DX: T78.40XA Allergy, unspecified, initial encounter (principal)
CPT/HCPCS: 96374; 96375; 99283; 99284; J1200; J2930

== ENCOUNTER 2022-03-18 17:14 | Emergency (ER) | payer OTHER, SELFPAY ==
[2022-03-18 17:28] VITALS: BP 120/71; PULSE 85; RESP 16; TEMP 36.7; O2SAT 99
[2022-03-18 17:48] LABS: Add Manual Diff / Slide Review NO; Basophils Absolute Auto 0 /uL (0-100); Basophils Percent Auto 0.3 % (0-2); Eosinophils Absolute Auto 300 /uL (0-450); Eosinophils Percent Auto 2.1 % (2-4); Hematocrit 37.3 % (36-46); Lymphocytes Absolute Auto 2400 /uL (1100-4500); Lymphocytes Percent Auto 18.7 % (25-40); Mean Corpuscular HGB Conc 34.9 % (30-36); Mean Corpuscular Hemoglobin 31.1 PG (26-34); Mean Corpuscular Volume 89.1 fL (80-100); Monocytes Absolute Auto 500 /uL (0-900); Monocytes Percent Auto 3.9 % (3-14); Neutrophils Absolute Auto 9500 /uL (1500-7000); Platelet Count 428 X10^3/uL (150-400); Red Blood Cell Count 4.19 X10^6/uL (4.0-5.2); Red Cell Distribution Width 11.7 % (11.6-14.8); White Blood Cell Count 12.7 X10^3/uL (4.5-11.0)
[2022-03-18 18:05] LABS: Alanine Aminotransferase 21 IU/L (<35); Albumin 4.2 g/dL (3.5-5.0); Albumin Globulin Ratio 1.3 (1.0-2.8); Alkaline Phosphatase 70 U/L (38-126); Aspartate Aminotransferase 22 IU/L (14-36); BUN Creatinine Ratio 26.5 (6-22); Bilirubin Total 0.4 mg/dL (0.2-1.3); Blood Urea Nitrogen 13 mg/dL (7-17); Calcium 8.9 mg/dL (8.4-10.2); Carbon Dioxide 20 mmol/L (22-32); Chloride 106 mmol/L (98-107); Estimated Glomerular Filt Rate > 60 mL/min (>60); Globulin 3.2 g/dL (1.7-4.1); Glucose 99 mg/dL (70-100); HEMOLYSIS < 15 (0-50); Lipase 144 U/L (23-300); Sodium 136 mmol/L (137-145); Total Protein 7.4 g/dL (6.3-8.2)
--- NOTE | 2022-03-18 23:10 | PC.NURSE ---
To room from triage - assumed care of pt at this time
--- NOTE | 2022-03-19 00:30 | PC.NURSE ---
MD at bedside - family present
--- NOTE | 2022-03-19 00:43 | ED_ITS ---
HPI - Abdominal Pain General Chief Complaint: Abdominal Pain Stated Complaint: pain to belly button Time Seen by Provider: 03/19/22 00:43 Source: patient Mode of arrival: Ambulatory History of Present Illness HPI narrative: Patient is a 21-year-old female who has a history of anxiety depression presenting today with right lower quadrant. She states that she went to bed fine but woke up and had right lower quadrant pain. She did eat breakfast this is then has had a decrease in appetite. Hurts whenever she moves walks. She was feeling nauseous and warm but no actual fever. He will painful or frequent urination no flank pain. She states that she felt constipated the last few days. Patient has actually had right lower quadrant pain before. She was seen in September for something similar. Related Data Previous Rx's Medication Instructions Recorded methocarbamol 500 mg tablet 500 mg PO TID PRN back pain #20 06/12/21 tabs prednisone 50 mg tablet 50 mg PO DAILY back pain #5 tabs 06/12/21 epinephrine 0.3 mg/0.3 mL 0.3 mg (0.3 mL) IM Q5-15M PRN 02/20/22 injection, auto-injector (EpiPen anaphylaxis #2 ea 2-Ramsey) prednisone 20 mg tablet 40 mg PO DAILY #10 tabs 02/20/22 Allergies Allergy/AdvReac Type Severity Reaction Status Date / Time sumatriptan Allergy Verified 12/23/21 23:50 Review of Systems Review of Systems Narrative: GENERAL: Denies chills, fatigue, malaise, fever, sweats, travel HEENT: Denies sinus pain, ear pain, sore throat, difficulty swallowing, neck pain RESPIRATORY: Denies dyspnea, cough, wheezing, hemoptysis, sputum. CARDIOVASCULAR: Denies chest pain, palpitations, orthopnea, edema GASTROINTESTINAL: See HPI : Denies dysuria, frequency, incontinence, hematuria, urinary retention, flank pain. MUSCULOSKELETAL: Denies weakness, joint pain, or bony pain SKIN: No rash, no erythema, no pruritus NEUROLOGIC: Denies weakness, dizziness, headache, numbness, change in speech, confusion PSYCHIATRIC: No concerning psychosocial issues. 12 point review of systems is negative except for those stated above and HPI Patient History Social History Smoking Status: Never smoker Smoking Status: Never smoker alcohol intake frequency: 0-2 drinks per day Substance Use Type: does not use Exam Initial Vital Signs Initial Vital Signs: Vital Signs Temperature 98.0 F 03/18/22 17:28 Pulse Rate 85 03/18/22 17:28 Respiratory Rate 16 03/18/22 17:28 Blood Pressure 120/71 03/18/22 17:28 Pulse Oximetry 99 03/18/22 17:28 Oxygen Delivery Method 03/18/22 17:28 GENERAL: Alert pleasant 21-year-old female and in no acute distress. HEENT: Head atraumatic,EOMI, pupils reactive, face symmetric, moist mucous membranes CARDIOVASCULAR: Regular rate and rhythm without murmurs, rubs or gallops. RESPIRATORY: Breath sounds equal bilaterally, no wheezes rales or rhonchi. ABDOMEN: Soft, tender right lower quadrant guarding or rebound no CVA tenderness no Shepherd sign no right upper quadrant EXTREMITIES: Normal range of motion, no clubbing or edema. Neurovascularly intact NEUROLOGICAL: Alert and oriented x4. SKIN: Warm, dry, no laceration, no petechiae, no rashes or lesions. Course Orders Ordered: ED Orders 03/19/22 00:47 CT abdomen pelvis w con Stat Discontinued Medications Ketorolac Tromethamine (Ketorolac 30 Mg/Ml Vial) 15 mg IV NOW ONE Stop: 03/19/22 00:48 Last Admin: 03/19/22 01:47 Dose: 15 mg Documented By: TITO Vital Signs Vital signs: Vital Signs - 8 hr 03/19/22 02:55 Temperature 98.2 F Pulse Rate 79 Respiratory Rate 16 Blood Pressure 105/66 Pulse Oximetry 98 Oxygen Delivery Method Room Air MDM - Abdominal Pain Lab Data Result diagrams: 03/18/22 17:40 03/18/22 17:40 Labs: Lab Results 03/18/22 03/18/22 Range/Units 17:40 17:40 WBC 12.7 H (4.5-11.0) X10^3/uL RBC 4.19 (4.0-5.2) X10^6/uL Hgb 13.0 (12.0-16.0) g/dL Hct 37.3 (36-46) % MCV 89.1 (80-100) fL MCH 31.1 (26-34) PG MCHC 34.9 (30-36) % RDW 11.7 (11.6-14.8) % Plt Count 428 H (150-400) X10^3/uL Neut % (Auto) 75.0 (50-75) % Lymph % (Auto) 18.7 L (25-40) % [place] % (Auto) 3.9 (3-14) % Eos % (Auto) 2.1 (2-4) % Baso % (Auto) 0.3 (0-2) % Neut # (Auto) 9500 H (3024-5826) /uL Lymph # (Auto) 2400 (6658-1925) /uL [place] # (Auto) 500 (0-900) /uL Eos # (Auto) 300 (0-450) /uL Baso # (Auto) 0 (0-100) /uL Sodium 136 L (137-145) mmol/L Potassium 4.0 (3.4-5.1) mmol/L Chloride 106 (98-107) mmol/L Carbon Dioxide 20 L (22-32) mmol/L BUN 13 (7-17) mg/dL Creatinine 0.49 L (0.52-1.04) mg/dL Estimated GFR > 60 (>60) mL/min BUN/Creatinine Ratio 26.5 H (6-22) Glucose 99 (70-100) mg/dL Calcium 8.9 (8.4-10.2) mg/dL Total Bilirubin 0.4 (0.2-1.3) mg/dL AST 22 (14-36) IU/L ALT 21 (<35) IU/L Alkaline Phosphatase 70 (38-126) U/L Total Protein 7.4 (6.3-8.2) g/dL Albumin 4.2 (3.5-5.0) g/dL Globulin 3.2 (1.7-4.1) g/dL Albumin/Globulin Ratio 1.3 (1.0-2.8) Lipase 144 (23-300) U/L Point of care testing: Point of Care Testing Test Results Negative Urine Dip Bedside Urine Glucose Negative Bedside Urine Bilirubin - Negative Bedside Urine Ketone - Negative Urine Specific [place] 1.025 Bedside Urine Occult Blood - Negative Bedside Urine pH 6.0 Bedside Urine Protein - Negative Bedside Urine Urobilinogen - Negative Bedside Urine Nitrite - Negative Bedside Urine Leukocytes - Negative Esterase Imaging Data CT scan - abdomen/pelvis: Radiologist's Impression: XRay ReportSigned Patient: Maki Aviles [facility]#: [id number]: 10/25/1997Acct:[id number]/Sex: 24 / FDate of Service: 03/18/22Loc: EDAccession Number: [id number] Procedure: XR ribs LT min 3V w CXR1V Ordering Provider: Lala Anaya D.O. PROCEDURE: XR RIBS LT MIN 3V W CXR1V INDICATIONS: pain, felt a pop TECHNIQUE: 2 views of the left ribs were acquired, along with a single view chest. COMPARISON: None. FINDINGS: Surgical changes and devices: None. Bones and chest wall: Acute, displaced lateral left 6th rib fracture. No suspicious bony lesions. Overlying soft tissues appear unremarkable. No subcutaneous soft tissue emphysema. Lungs and pleura: No pleural effusions or pneumothorax. Lungs appear clear. Mediastinum: Mediastinal contours appear normal. Heart size is normal. IMPRESSION: Acute, displaced lateral left 6th rib fracture. No pneumothorax. Dictated by: Ulysses Hernandez M.D. on 03/18/2022 at 18:39 Approved by: Ulysses Hernandez M.D. on 03/18/2022 at 18:40 [facility] Narrative Medical decision making narrative: Patient does have right lower quadrant pain as she was feeling well previously. It seems as though according to records she has had this pain before. She has not had a pelvic ultrasound however her pain kind of higher. CT did not mention ovaries but I do not think she needs a pelvic ultrasound at this time. Pain is better after Toradol. He does have mild leukocytosis a possible stress versus infection however we do not have cause of infection at this time. Discharge Plan Departure Patient Disposition: Home Clinical Impression: Abdominal pain Instructions: DI for Abdominal Pain-Adult Activity Restrictions/Additional Instructions: *You have been diagnosed with abdominal pain *What to do: But this time no explanation for year abdominal pain. Please continue to monitor if her pain gets worse then please return to the ED. you may need a pelvic ultrasound at that time *Continue to take medications as directed Tylenol 1000 mg every 6 hours if needed for myzo-af-jdbjzjtn pain Ibuprofen 600 mg every 6 hours if needed for zjwq-qa-gbaopwip pain *Follow up with your primary care provider in 2-3 days or call [phone] *Return to ER if you should have increasing pain vomiting fever or any new, worsening or concerning symptoms Prescriptions: No Action prednisone 50 mg tablet 50 mg PO DAILY Qty: 5 0RF methocarbamol 500 mg tablet 500 mg PO TID PRN (Reason: back pain) Qty: 20 0RF prednisone 20 mg tablet 40 mg PO DAILY Qty: 10 0RF epinephrine [EpiPen 2-Ramsey] 0.3 mg/0.3 mL auto-injector 0.3 mg IM Q5-15M PRN (Reason: anaphylaxis) Qty: 2 0RF Rx Instructions: do not exceed 3 doses per episode Referrals: Reinaldo Waller [Primary Care Provider] - Visit Report Forms: Patient Portal/API
--- NOTE | 2022-03-19 00:47 | DI.CT.S_ITS ---
PROCEDURE: CT ABDOMEN PELVIS W CON INDICATIONS: rlq pain TECHNIQUE: After the administration of IV contrast, axial sections were acquired from the lung bases to the pubic symphysis. Coronal and sagittal reformats were performed. For radiation dose reduction, the following was used: automated exposure control, adjustment of mA and/or kV according to patient size. COMPARISON: [facility], CT, CT ABDOMEN PELVIS W CON, 09/30/2021, 21:34. FINDINGS: Image quality: Excellent. Lung bases: Unremarkable. Heart: Heart is normal in size. ABDOMEN: Liver: No mass lesion. Gallbladder: Within normal limits without calcified gallstones. Biliary ducts: No biliary ductal dilatation. Pancreas: Unremarkable. Spleen: Normal in size. Adrenal Glands: No adrenal nodules. Kidneys and Ureters: No hydronephrosis. Stomach and Bowel: Stomach, small bowel loops, and colon are normal in caliber and wall thickness. The appendix is normal in appearance. Peritoneum: No abnormal intraperitoneal fluid. No free air. Ventral Wall: No hernia. Abdominal Nodes: No retroperitoneal or mesenteric adenopathy by size criteria. Vessels: Aorta and inferior vena cava are normal in size. PELVIS: Pelvic Organs: Unremarkable. Bladder: Unremarkable. Pelvic Nodes: No enlarged lymph nodes. Miscellaneous: No inguinal hernias are seen. Bones: Visualized osseous structures demonstrate no suspicious focal lesions. IMPRESSION: 1. No acute intra-abdominal abnormality. Specifically, no evidence of acute appendicitis. Dictated by: Lamont Randolph M.D. on 03/19/2022 at 1:53 Approved by: Lamont Randolph M.D. on 03/19/2022 at 2:02
--- NOTE | 2022-03-19 01:00 | PC.NURSE ---
Pt in CT - medication held for return of pt to room
[2022-03-19] MEDS: KETOROLAC 30 MG/ML VIAL 15 MG IV (01:47)
--- NOTE | 2022-03-19 02:00 | PC.NURSE ---
Resting quietly with family at bedside - no needs voiced at this time - no vomiting noted
[2022-03-19 02:55] VITALS: BP 105/66; PULSE 79; RESP 16; TEMP 36.8; O2SAT 98
== END 2022-03-19 02:55 | disposition home or self-care (01) ==
PROVIDERS: Emergency Medicine; Emergency Provider Emergency Medicine; PCP Student in an Organized Health Care Education/Training Program
DX: R10.31 Right lower quadrant pain (principal); R11.0 Nausea
CPT/HCPCS: 36415; 74177; 80053; 81003; 81025; 83690; 85025; 96374; 99284; J1885

== ENCOUNTER 2022-05-14 20:02 | Emergency (ER) | payer OTHER, SELFPAY ==
[2022-05-14 20:15] VITALS: BP 127/87; PULSE 98; RESP 15; TEMP 37; O2SAT 97; BMI 22.4
[2022-05-14 23:45] VITALS: BP 132/100; PULSE 77; RESP 16; O2SAT 98
[2022-05-15] VITALS (7 sets, daily range): BP systolic 114–123; BP diastolic 74–84; PULSE 71–100; O2SAT 98–100
--- NOTE | 2022-05-15 00:13 | DI.CT.S_ITS ---
PROCEDURE: CT HEAD/BRAIN WO CON INDICATIONS: head injury 05/11 with persistent ESPARZA, vomiting, double vision TECHNIQUE: Noncontrast 4.5 mm thick angled axial sections acquired from the foramen magnum to the vertex, with coronal and sagittal reformats. For radiation dose reduction, the following was used: automated exposure control, adjustment of mA and/or kV according to patient size. COMPARISON: [facility], CT, CT HEAD WITHOUT CONTRAST, 05/12/2022, 22:08. FINDINGS: Image quality: Excellent. CSF spaces: Basal cisterns are patent. No extra-axial fluid collections. Ventricles are normal in size and shape. Brain: No intracranial hemorrhage, mass, or mass effect. Epstein-white matter interface appears preserved. Skull and face: Calvarium and visualized facial bones are intact, without suspicious lesions. Sinuses: Visualized sinuses and mastoids are clear. IMPRESSION: 1. No acute intracranial abnormality. Dictated by: Lamont Randolph M.D. on 05/15/2022 at 0:35 Approved by: Lamont Randolph M.D. on 05/15/2022 at 0:36
--- NOTE | 2022-05-15 00:15 | ED_ITS ---
HPI - Head Injury General Chief complaint: Head Injury Stated complaint: states concussion, needs to f/u Time Seen by Provider: 05/15/22 00:08 Source: patient Mode of arrival: Ambulatory History of Present Illness HPI Narrative: 21-year-old woman with no significant medical history had a mechanical fall on ice landing directly on the occiput of her head on 05/11. She was seen at [facility] for initial evaluation where head CT scan was done and was reportedly negative. She was given Zofran and instructions to follow-up. She was waiting outside her doctor's office today to follow-up and fell asleep in the car and missed her appointment. She talked to the triage nurse who recommended that she still come into the ER for additional evaluation. She is continuing to complain of significant headache, persistent nausea with vomiting most recently 1 hour ago, photophobia, irritability and difficulty with focusing, she also notes intermittent episodes of double vision. There are no other musculoskeletal complaints Related Data Previous Rx's Medication Instructions Recorded methocarbamol 500 mg tablet 500 mg PO TID PRN back pain #20 06/12/21 tabs prednisone 50 mg tablet 50 mg PO DAILY back pain #5 tabs 06/12/21 epinephrine 0.3 mg/0.3 mL 0.3 mg (0.3 mL) IM Q5-15M PRN 02/20/22 injection, auto-injector (EpiPen anaphylaxis #2 ea 2-Ramsey) prednisone 20 mg tablet 40 mg PO DAILY #10 tabs 02/20/22 Allergies Allergy/AdvReac Type Severity Reaction Status Date / Time sumatriptan Allergy Verified 05/14/22 20:15 Review of Systems Review of Systems Narrative: Remainder of complete review of systems is otherwise unremarkable except for that included in the HPI. Patient History Social History Smoking Status: Never smoker Smoking Status: Never smoker alcohol intake frequency: holidays/special occasions only Substance Use Type: does not use Exam Initial Vital Signs Initial Vital Signs: Vital Signs Temperature 98.6 F 05/14/22 20:15 Pulse Rate 98 H 05/14/22 20:15 Respiratory Rate 15 05/14/22 20:15 Blood Pressure 127/87 05/14/22 20:15 Pulse Oximetry 97 05/14/22 20:15 Oxygen Delivery Method 05/14/22 20:15 General: Healthy appearing, in mild distress with light sensitivity Able to give a complete and coherent history. Well-nourished well-developed HEENT: Moist mucous membranes, normal sclera with reactive pupils, funduscopic exam shows no obvious hemorrhage with appropriate disc to cup ratio Neck: Tenderness at occipital insertions bilaterally, trapezius muscle spasm bilaterally no midline cervical spine tenderness., Respiratory: Lungs are clear to auscultation, no wheezing no rales no rhonchi. Full and symmetrical air movement Cardiac: Regular rate and rhythm no murmurs no bruits Abdomen: Soft, nontender, good bowel tones, no flank pain Skin: Warm and dry, no rashes Neurologic: Moving all extremities, no complaints of paresthesias Extremities: No trauma, well perfused Psych: Cooperative, appropriate insight and affect Course Orders Ordered: ED Orders 05/15/22 00:13 CT head/brain wo con Stat Discontinued Medications Acetaminophen (Acetaminophen 325 Mg Tablet) 325 mg PO NOW ONE Stop: 05/15/22 00:14 Last Admin: 05/15/22 00:38 Dose: 325 mg Documented By: SHAYLA Ibuprofen (Ibuprofen 400 Mg Tablet) 400 mg PO NOW ONE Stop: 05/15/22 00:14 Last Admin: 05/15/22 00:38 Dose: 400 mg Documented By: SHAYLA Ondansetron HCl (Ondansetron 4 Mg Odt) 4 mg SL NOW ONE Stop: 05/15/22 00:14 Last Admin: 05/15/22 00:38 Dose: 4 mg Documented By: SHAYLA Vital Signs Vital signs: Vital Signs - 8 hr 05/14/22 20:15 05/14/22 23:45 05/15/22 00:07 Temperature 98.6 F Pulse Rate 98 H 77 93 H Respiratory Rate 15 16 Blood Pressure 127/87 132/100 H Pulse Oximetry 97 98 99 Oxygen Delivery Method Room Air Room Air 05/15/22 00:08 05/15/22 00:08 05/15/22 00:25 Temperature Pulse Rate 90 Respiratory Rate Blood Pressure 115/76 123/79 Pulse Oximetry 100 Oxygen Delivery Method 05/15/22 00:25 12 00:30 05/15/22 00:30 Temperature Pulse Rate 84 72 Respiratory Rate Blood Pressure 114/74 Pulse Oximetry 98 99 Oxygen Delivery Method MDM - Head Injury MDM Narrative Medical decision making narrative: 21-year-old woman with worsening symptoms after initial evaluation 4 days ago for a fall with hitting her head. Initial CT scan 4 days ago was unremarkable. Repeat CT scan today is equally unremarkable. We had long discussion about postconcussion syndrome, anticipation of timeframe recovery options for relieving some of her symptoms and suggestions for follow-up. At this point there is no evidence of intracranial hemorrhage or alternate explanation for the fairly classic concussion symptoms of which she is complaining. Findings reviewed questions are answered and she is safe for discharge home Emergency Medicine: Utilization of CT for Minor Blunt Head Trauma (Adult) Patient is 18 or older, presenting with minor blunt head trauma. Head CT was ordered Patient has focal neurologic deficit- double vision Patient has severe headache Patient is vomiting Short-term memory deficit Discharge Plan Departure Patient Disposition: Home Clinical Impression: Post-concussion syndrome Concussion without loss of consciousness Qualifiers: Encounter type: initial encounter Qualified Code(s): S06.0X0A - Concussion without loss of consciousness, initial encounter Instructions: Concussion, DI for Postconcussion Syndrome Activity Restrictions/Additional Instructions: Thank you for coming in today I am sorry that you are still suffering from concussion symptoms. Fortunately your repeat head CT scan today is reassuring, there is definitely no bleeding inside your brain. Your symptoms are very consistent with a concussion and postconcussion syndrome. Sometimes it can take quite a bit of time for all of these symptoms to resolve. Cognitive rest, simply sitting and staring at nature rather than looking at screens, phones, reading or trying to focus and concentrate, can be very helpful. You can use both ibuprofen and Tylenol to help if you have pain from the trauma of the fall itself. Zofran/ondansetron that you have available at home can help with the queasy feeling that often accompanies postconcussion syndrome. If you find that you have worsening symptoms, please feel free to return to the emergency department Prescriptions: No Action prednisone 50 mg tablet 50 mg PO DAILY Qty: 5 0RF methocarbamol 500 mg tablet 500 mg PO TID PRN (Reason: back pain) Qty: 20 0RF prednisone 20 mg tablet 40 mg PO DAILY Qty: 10 0RF epinephrine [EpiPen 2-Ramsey] 0.3 mg/0.3 mL auto-injector 0.3 mg IM Q5-15M PRN (Reason: anaphylaxis) Qty: 2 0RF Rx Instructions: do not exceed 3 doses per episode Referrals: Reinaldo Waller [Primary Care Provider] -
[2022-05-15] MEDS: ONDANSETRON 4 MG ODT SL (00:38)
[2022-05-15] MEDS: ACETAMINOPHEN 325 MG TABLET PO (00:38)
[2022-05-15] MEDS: IBUPROFEN 400 MG TABLET PO (00:38)
== END 2022-05-15 02:15 | disposition home or self-care (01) ==
PROVIDERS: Emergency Provider Emergency Medicine; PCP Student in an Organized Health Care Education/Training Program
DX: S06.0X0A Concussion without loss of consciousness, initial encounter (principal); H53.9 Unspecified visual disturbance; W00.0XXA Fall on same level due to ice and snow, initial encounter
CPT/HCPCS: 70450; 99283

== ENCOUNTER 2022-08-15 22:46 | Emergency (ER) | payer OTHER, SELFPAY ==
[2022-08-15 22:55] VITALS: BP 118/76; PULSE 104; RESP 18; TEMP 37.7; O2SAT 98; BMI 22.4
--- NOTE | 2022-08-15 23:00 | DI.RAD.S_ITS ---
PROCEDURE: XR CHEST 1V INDICATIONS: suspected sepsis TECHNIQUE: One view of the chest was acquired. COMPARISON: None. FINDINGS: Surgical changes and devices: None. Lungs and pleura: Lungs are clear. No pleural effusions or pneumothorax. Mediastinum: Mediastinal contours appear normal. Heart size is normal. Bones and chest wall: No suspicious bony lesions. Overlying soft tissues appear unremarkable. IMPRESSION: 1. No acute cardiopulmonary disease. Dictated by: Lamont Randolph M.D. on 08/15/2022 at 23:19 Approved by: Lamont Randolph M.D. on 08/15/2022 at 23:19
--- NOTE | 2022-08-15 23:12 | ED.CHESTPAIN ---
HPI - Chest Pain General Chief Complaint: Chest Pain Stated Complaint: Severe chest pain Time Seen by Provider: 08/15/22 23:05 Source: family Mode of arrival: Ambulatory Limitations: no limitations History of Present Illness HPI narrative: 22-year-old female nonsmoker presents with 2 days of mild headache, multiple episodes of nausea and vomiting as well as dry hacking cough. She has a sharp and stabbing chest pain that seems to be worse with cough and when she leans forward and she thinks that this chest pain has been present for a few weeks if not longer. She denies any recent travel, trauma or injury, history of blood clot or pain or swelling of 1 leg or the other. She is vaccinated against COVID and denies any exposure to obviously ill persons. Related Data Previous Rx's Medication Instructions Recorded methocarbamol 500 mg tablet 500 mg PO TID PRN back pain #20 06/12/21 tabs prednisone 50 mg tablet 50 mg PO DAILY back pain #5 tabs 06/12/21 epinephrine 0.3 mg/0.3 mL 0.3 mg (0.3 mL) IM Q5-15M PRN 02/20/22 injection, auto-injector (EpiPen anaphylaxis #2 ea 2-Ramsey) prednisone 20 mg tablet 40 mg PO DAILY #10 tabs 02/20/22 benzonatate 200 mg capsule 200 mg PO BID PRN cough #20 caps 08/16/22 ondansetron 4 mg disintegrating 4 mg PO TID-QID PRN nausea and 08/16/22 tablet vomiting #10 tabs pantoprazole 40 mg tablet,delayed 40 mg PO DAILY #30 tabs 08/16/22 release (Protonix) promethazine 12.5 mg rectal 12.5 mg FL Q4-6H PRN nausea and 08/16/22 suppository vomiting #12 ea Allergies Allergy/AdvReac Type Severity Reaction Status Date / Time NSAIDS (Non-Steroidal Allergy Mild Hives Verified 08/15/22 23:45 Anti-Inflamma sumatriptan Allergy Verified 05/14/22 20:15 Review of Systems Review of Systems Narrative: GENERAL: See HPI HEENT: See HPI RESPIRATORY: See HPI CARDIOVASCULAR: Denies chest pain, palpitations, orthopnea, edema, GASTROINTESTINAL: See HPI : Denies dysuria, frequency, incontinence, hematuria, urinary retention. MUSCULOSKELETAL: denies weakness, joint pain, or bony pain SKIN: Denies rash, skin lesions, or other NEUROLOGIC: Denies weakness, headache, numbness, change in speech, confusion, seizures, incoordination. PSYCHIATRIC: No concerning psychosocial issues. 12 point review of systems is negative except for those stated above Patient History Social History Smoking Status: Never smoker Smoking Status: Never smoker alcohol intake frequency: holidays/special occasions only Substance Use Type: does not use Exam Narrative Exam Narrative: GENERAL: [22] year old patient appears stated age. Well-developed patient, in mild distress. HEAD: Atraumatic. Normocephalic. EYES: Pupils equal round and reactive. Extraocular motions intact. No scleral icterus. No injection or drainage. ENT: Dry mucous membranes Nose without bleeding, purulent drainage. Throat without erythema, tonsillar hypertrophy or exudate. Airway patent. NECK: Trachea midline. Non tender CARDIOVASCULAR: Slightly tachycardic but regular rhythm without murmurs, gallops, or rubs. RESPIRATORY: Clear to auscultation. Breath sounds equal bilaterally. No wheezes, rales, or rhonchi. GASTROINTESTINAL: Abdomen soft, non-tender, nondistended. EXTREMITIES: No edema or joint tenderness. BACK: Nontender without deformity or crepitance. No flank tenderness. NEURO: AOx3. SKIN: No rash or erythema of visible areas Initial Vital Signs Initial Vital Signs: Vital Signs Temperature 100 F H 08/15/22 22:55 Pulse Rate 104 H 08/15/22 22:55 Respiratory Rate 18 08/15/22 22:55 Blood Pressure 118/76 08/15/22 22:55 Pulse Oximetry 98 08/15/22 22:55 Oxygen Delivery Method Room Air 08/15/22 22:55 Course Orders Ordered: ED Orders 08/15/22 23:00 XR chest 1V Stat EKG-12 Lead Stat RT Consult Eval and Treat NOW 08/15/22 23:09 COVID19 -Nasal RAPID Stat Complete Blood Count AUTO DIFF Stat Comprehensive Metabolic Panel Stat D Dimer Stat Lactate (Lactic Acid) Stat Lipase Stat PTT Partial Thromboplastin Marcos Stat Procalcitonin Stat Prothrombin Time INR Stat 08/15/22 23:40 Blood Culture Stat Sodium Chloride (Normal Saline 0.9%) 1,837.05 mls @ 612.35 mls/hr 30 ml/kg infuse over 3 hr (1837.05 ml) IV NOW ONE Stop: 08/16/22 02:11 Last Admin: 08/15/22 23:45 Dose: 612.35 mls/hr Documented By: WINDY Ondansetron HCl (Ondansetron 4 Mg Odt) 4 mg SL NOW PRN PRN Reason: Nausea And Vomiting Ondansetron HCl (Ondansetron 4 Mg/2 Ml Inj) 4 mg IV NOW PRN PRN Reason: Nausea And Vomiting Discontinued Medications Acetaminophen (Acetaminophen 650 Mg Supp) 650 mg FL NOW ONE Stop: 08/15/22 23:01 Last Admin: 08/15/22 23:24 Dose: Not Given Documented By: BS Acetaminophen (Acetaminophen 325 Mg Tablet) 975 mg PO NOW ONE Stop: 08/15/22 23:01 Last Admin: 08/15/22 23:25 Dose: Not Given Documented By: BS Sodium Chloride (Normal Saline 0.9%) 1,000 mls @ 1,000 mls/hr IV BOLUS ONE Stop: 08/15/22 23:59 Last Admin: 08/15/22 23:53 Dose: Not Given Documented By: BS Ibuprofen (Ibuprofen 400 Mg Tablet) 800 mg PO NOW ONE Stop: 08/15/22 23:01 Last Admin: 08/15/22 23:25 Dose: Not Given Documented By: WINDY Ketorolac Tromethamine (Ketorolac 30 Mg/Ml Vial) 15 mg IV NOW ONE Stop: 08/15/22 23:26 Last Admin: 08/15/22 23:46 Dose: Not Given Documented By: WINDY Metoclopramide HCl (Metoclopramide 10 Mg/2 Ml Inj) 10 mg IV NOW ONE Stop: 08/16/22 00:25 Last Admin: 08/16/22 00:34 Dose: 10 mg Documented By: WINDY Ondansetron HCl (Ondansetron 4 Mg/2 Ml Inj) 4 mg IV NOW ONE Stop: 08/15/22 23:13 Last Admin: 08/15/22 23:41 Dose: 4 mg Documented By: WINDY Pantoprazole Sodium (Pantoprazole 40 Mg Vial) 40 mg IV NOW ONE Stop: 08/15/22 23:13 Last Admin: 08/15/22 23:41 Dose: 40 mg Documented By: BS Vital Signs Vital signs: Vital Signs - 8 hr 08/15/22 22:55 Temperature 100 F H Pulse Rate 104 H Respiratory Rate 18 Blood Pressure 118/76 Pulse Oximetry 98 Oxygen Delivery Method Room Air MDM - Chest Pain Lab Data 08/15/22 23:09 08/15/22 23:09 Labs: Lab Results 08/15/22 08/15/22 08/15/22 Range/Units 23:09 23:09 23:09 WBC 9.2 (4.5-11.0) X10^3/uL RBC 4.39 (4.0-5.2) X10^6/uL Hgb 13.5 (12.0-16.0) g/dL Hct 39.2 (36-46) % MCV 89.5 (80-100) fL MCH 30.7 (26-34) PG MCHC 34.4 (30-36) % RDW 11.8 (11.6-14.8) % Plt Count 393 (150-400) X10^3/uL Neut % (Auto) 74.5 (50-75) % Lymph % (Auto) 19.1 L (25-40) % [place] % (Auto) 4.8 (3-14) % Eos % (Auto) 1.2 L (2-4) % Baso % (Auto) 0.4 (0-2) % Neut # (Auto) 6800 (7317-8681) /uL Lymph # (Auto) 1800 (8739-6907) /uL [place] # (Auto) 400 (0-900) /uL Eos # (Auto) 100 (0-450) /uL Baso # (Auto) 0 (0-100) /uL PT 11.7 (10.1-12.7) SECONDS INR 1.0 (0.9-1.3) APTT 25 L (26-36) SECONDS D-Dimer < 215 (<500) ng/ml Sodium 138 (137-145) mmol/L Potassium 4.0 (3.4-5.1) mmol/L Chloride 104 (98-107) mmol/L Carbon Dioxide 26 (22-32) mmol/L BUN 9 (7-17) mg/dL Creatinine 0.48 L (0.52-1.04) mg/dL Estimated GFR > 60 (>60) mL/min BUN/Creatinine Ratio 18.8 (6-22) Glucose 96 (70-100) mg/dL Lactate (0.7-2.1) mmol/L Calcium 9.1 (8.4-10.2) mg/dL Total Bilirubin 0.5 (0.2-1.3) mg/dL AST 30 (14-36) IU/L ALT 35 H (<35) IU/L Alkaline Phosphatase 56 (38-126) U/L Total Protein 7.3 (6.3-8.2) g/dL Albumin 4.3 (3.5-5.0) g/dL Globulin 3.0 (1.7-4.1) g/dL Albumin/Globulin Ratio 1.4 (1.0-2.8) Lipase 169 (23-300) U/L Procalcitonin 0.03 (<0.5) ng/mL SARS-CoV-2 (PCR) (Negative) 08/15/22 08/15/22 Range/Units 23:09 23:09 WBC (4.5-11.0) X10^3/uL RBC (4.0-5.2) X10^6/uL Hgb (12.0-16.0) g/dL Hct (36-46) % MCV (80-100) fL MCH (26-34) PG MCHC (30-36) % RDW (11.6-14.8) % Plt Count (150-400) X10^3/uL Neut % (Auto) (50-75) % Lymph % (Auto) (25-40) % [place] % (Auto) (3-14) % Eos % (Auto) (2-4) % Baso % (Auto) (0-2) % Neut # (Auto) (1822-8427) /uL Lymph # (Auto) (6275-1001) /uL [place] # (Auto) (0-900) /uL Eos # (Auto) (0-450) /uL Baso # (Auto) (0-100) /uL PT (10.1-12.7) SECONDS INR (0.9-1.3) APTT (26-36) SECONDS D-Dimer (<500) ng/ml Sodium (137-145) mmol/L Potassium (3.4-5.1) mmol/L Chloride (98-107) mmol/L Carbon Dioxide (22-32) mmol/L BUN (7-17) mg/dL Creatinine (0.52-1.04) mg/dL Estimated GFR (>60) mL/min BUN/Creatinine Ratio (6-22) Glucose (70-100) mg/dL Lactate 1.0 (0.7-2.1) mmol/L Calcium (8.4-10.2) mg/dL Total Bilirubin (0.2-1.3) mg/dL AST (14-36) IU/L ALT (<35) IU/L Alkaline Phosphatase (38-126) U/L Total Protein (6.3-8.2) g/dL Albumin (3.5-5.0) g/dL Globulin (1.7-4.1) g/dL Albumin/Globulin Ratio (1.0-2.8) Lipase (23-300) U/L Procalcitonin (<0.5) ng/mL SARS-CoV-2 (PCR) Positive H (Negative) MDM Narrative Medical decision making narrative: [22] year old patient presents with cough, headache, atypical chest pain, nausea and vomiting Multiple etiologies for patient's symptoms considered including, but not limited to: [COVID, flu, dehydration versus other] Prior Charts reviewed in our EMR Primary Historian: patient Labs reviewed and interpreted by myself: No significant leukocytosis, evidence of anemia, electrolyte abnormality or change in renal function. Respiratory swab is positive for COVID Imaging reviewed: No acute cardiopulmonary disease Patient's symptoms improved over duration of stay with above-stated therapies. Patient without respiratory distress, not hypoxemic, no need for supplemental oxygen, tolerating orals, no indication for further workup or hospitalization Findings and discharge diagnosis discussed with patient/family followed by verbalization of understanding Return precautions discussed with patient/family whom verbalize understanding of diagnosis and plan Discharge Plan Departure Patient Disposition: Home Clinical Impression: Atypical chest pain, COVID-19 Instructions: COVID-19 Activity Restrictions/Additional Instructions: *You have been diagnosed with [ COVID-19] *What to do: ?* per recommendations from the CDC and the [facility] Department of Health ?* stay home except to get medical care. ?Restrict activities outside your home, except for getting medical care. ?Do not go to work, school, or public areas. ?Avoid using public transportation, ride sharing, or taxis. ?* separate yourself from other people in your home. ?* call ahead before visiting your doctor ?* Wear a facemask ?* Cover your coughs and sneezes ?* Clean your hands often ?* Avoid sharing household items ?* Clean all high-touch services every day ?* Monitor your symptoms and seek prompt medical attention if your illness is worsening, particularly with difficulty in breathing. You may discontinue your isolation when: ?1. You have been fever-free for at least 24 hours without the use of fever reducing medication, AND ?2. Your symptoms are getting better, AND ?3. At least 5 days have passed since symptoms first appeared ?4. If you have fever, continue to stay home until fever resolves Individuals with laboratory confirmed COVID-19 who have not had any symptoms may discontinue home isolation when at least 5 days have passed since the date of their first COVID-19 diagnostic test and have had no subsequent illness You should notifiy any friends and family that have been in close contact *If up to date on COVID Vaccines, then they do not need to quarantine unless symptoms develop. Get tested on day 5 (or sooner if symptoms develop). Take precautions and watch for symptoms until day 10 *If NOT up to date on COVID Vaccines, then CDC recommends quarantine for at least 5 full days. Wear a well fitted mask at home if you must be around others. If they ?develop symptoms they should get tested. If they remain asymptomatic they should get tested on day 5. They should take precautions and monitor for symptoms until day 10. Prescriptions: New benzonatate 200 mg capsule 200 mg PO BID PRN (Reason: cough) Qty: 20 0RF promethazine 12.5 mg suppository 12.5 mg FL Q4-6H PRN (Reason: nausea and vomiting) Qty: 12 0RF pantoprazole [Protonix] 40 mg tablet,delayed release (DR/EC) 40 mg PO DAILY Qty: 30 0RF ondansetron 4 mg tablet,disintegrating 4 mg PO TID-QID PRN (Reason: nausea and vomiting) Qty: 10 0RF No Action prednisone 50 mg tablet 50 mg PO DAILY Qty: 5 0RF methocarbamol 500 mg tablet 500 mg PO TID PRN (Reason: back pain) Qty: 20 0RF prednisone 20 mg tablet 40 mg PO DAILY Qty: 10 0RF epinephrine [EpiPen 2-Ramsey] 0.3 mg/0.3 mL auto-injector 0.3 mg IM Q5-15M PRN (Reason: anaphylaxis) Qty: 2 0RF Rx Instructions: do not exceed 3 doses per episode Referrals: Reinaldo Waller [Primary Care Provider] - Stand Alone Forms: Patient Portal/API
[2022-08-15 23:16] VITALS: O2SAT 87
[2022-08-15 23:20] VITALS: BP 109/74; PULSE 95; O2SAT 100
[2022-08-15 23:29] LABS: Add Manual Diff / Slide Review NO; Basophils Absolute Auto 0 /uL (0-100); Basophils Percent Auto 0.4 % (0-2); Eosinophils Absolute Auto 100 /uL (0-450); Eosinophils Percent Auto 1.2 % (2-4); Hematocrit 39.2 % (36-46); Hemoglobin 13.5 g/dL (12.0-16.0); Lymphocytes Absolute Auto 1800 /uL (1100-4500); Lymphocytes Percent Auto 19.1 % (25-40); Mean Corpuscular HGB Conc 34.4 % (30-36); Mean Corpuscular Hemoglobin 30.7 PG (26-34); Mean Corpuscular Volume 89.5 fL (80-100); Monocytes Absolute Auto 400 /uL (0-900); Monocytes Percent Auto 4.8 % (3-14); Neutrophils Absolute Auto 6800 /uL (1500-7000); Neutrophils Percent Auto 74.5 % (50-75); Platelet Count 393 X10^3/uL (150-400); Red Blood Cell Count 4.39 X10^6/uL (4.0-5.2); Red Cell Distribution Width 11.8 % (11.6-14.8); White Blood Cell Count 9.2 X10^3/uL (4.5-11.0)
[2022-08-15 23:30] VITALS: BP 111/73; PULSE 98; RESP 33; O2SAT 98
[2022-08-15 23:40] LABS: Prothrombin Time 11.7 SECONDS (10.1-12.7)
[2022-08-15] MEDS: PANTOPRAZOLE 40 MG VIAL IV (23:41)
[2022-08-15] MEDS: ONDANSETRON 4 MG/2 ML INJ IV (23:41)
[2022-08-15 23:42] LABS: COVID19 -Nasal RAPID POSITIVE (Negative)
[2022-08-15 23:43] LABS: D Dimer < 215 ng/ml (<500); PTT Partial Thromboplastin Tim 25 SECONDS (26-36)
[2022-08-15] MEDS: SODIUM CHLORIDE 0.9% 1,837.05 ML 612.35 ML IV (23:45)
[2022-08-15 23:47] LABS: Alanine Aminotransferase 35 IU/L (<35); Albumin 4.3 g/dL (3.5-5.0); Albumin Globulin Ratio 1.4 (1.0-2.8); Alkaline Phosphatase 56 U/L (38-126); Aspartate Aminotransferase 30 IU/L (14-36); BUN Creatinine Ratio 18.8 (6-22); Bilirubin Total 0.5 mg/dL (0.2-1.3); Blood Urea Nitrogen 9 mg/dL (7-17); Calcium 9.1 mg/dL (8.4-10.2); Carbon Dioxide 26 mmol/L (22-32); Chloride 104 mmol/L (98-107); Estimated Glomerular Filt Rate > 60 mL/min (>60); Glucose 96 mg/dL (70-100); HEMOLYSIS < 15 (0-50); Lipase 169 U/L (23-300); Sodium 138 mmol/L (137-145); Total Protein 7.3 g/dL (6.3-8.2)
[2022-08-16] VITALS: BP 103/65; PULSE 92; O2SAT 100
[2022-08-16 00:02] LABS: Procalcitonin 0.03 ng/mL (<0.5)
[2022-08-16 00:30] VITALS: BP 116/63; PULSE 97; O2SAT 100
[2022-08-16] MEDS: METOCLOPRAMIDE 10 MG/2 ML INJ IV (00:34)
[2022-08-16 01:00] VITALS: BP 112/72; PULSE 106; O2SAT 100
[2022-08-16 01:15] VITALS: BP 113/62; PULSE 107; O2SAT 99
== END 2022-08-16 01:42 | disposition home or self-care (01) ==
PROVIDERS: Emergency Provider Emergency Medicine; PCP Student in an Organized Health Care Education/Training Program
DX: U07.1 COVID-19 (principal); R07.89 Other chest pain; R11.2 Nausea with vomiting, unspecified; R51.9 Headache, unspecified
CPT/HCPCS: 36415; 71045; 80053; 83605; 83690; 84145; 85025; 85379; 85610; 85730; 87040; 87635; 93005; 93010; 96374; 96375; 99284; C9803; C9113; J2405; J2765